=== PATIENT | female | born 1945 | race Caucasian/White ===

== ENCOUNTER 2016-07-30 06:41 | Day surgery (SDC) | payer MEDICARE, OTHER ==
[~2016-07-30] VITALS: Ht 160 cm; Wt 70.2 kg
[~2016-07-30 06:41] MED LIST: CELE200C PO; LOSA50TA6 PO; PARO10TA76 PO; ZOLP10TA5 PO
[2016-07-30 08:36] VITALS: Ht 160 cm; Wt 70.2 kg
[2016-07-30] MEDS ORDERED: MIDAZOLAM 1 MG/ML 2 ML INJ ONE ×4 (09:57→09:58)
[2016-07-30] MEDS ORDERED: FENTAnyl 50 MCG/ML VIAL ONE (09:57)
[2016-07-30 10:05] VITALS: BP 149/84; PULSE 67; RESP 20
[2016-07-30 10:55] VITALS: BP 123/69; RESP 20
--- NOTE | 2016-07-31 07:12 | GILP ---
DATE OF PROCEDURE: 07/30/2016 NAME OF PROCEDURE: 1. Esophagogastroduodenoscopy and biopsy. 2. Colonoscopy and polypectomy. SURGEON: Zeinab Church MD PREOPERATIVE DIAGNOSES: 1. Abdominal pain. 2. Screening colonoscopy. POSTOPERATIVE DIAGNOSES: 1. Hiatal hernia. 2. Gastroesophageal reflux disease. 3. Gastritis with erosions. 4. Gastric mucosal biopsies were taken for Helicobacter pylori test. 5. Colonoscopy all the way to the cecum. 6. Poor prep making the exam somewhat suboptimal. 7. Sigmoid colon polyp was removed using the snare and electrocautery. 8. Internal hemorrhoids. INDICATION FOR THE PROCEDURE: Ms. Alexa Workman is a 70-year-old female patient who had upper abdominal pain, not responding to therapy. The patient also needed screening colonoscopy. The procedures and possible complications are well explained to the patient, she understood and cons ented to the procedures. DESCRIPTION OF PROCEDURE: Under the influence of fentanyl and Versed, the gastroscope was carefully introduced into the esophagus and under direct vision, it was advanced to the stomach and through t he pylorus into the duodenal bulb and descending duodenum. FINDINGS: ESOPHAGUS: The patient had hiatal hernia and gastroesophageal reflux disease. STOMACH: She had gastritis with erosions. Gastric mucosal biopsies were taken for H. pylori test. DUODENUM: Normal. The colonoscope was carefully introduced in the rectum and under direct vision, it was advanced all the way to the cecum. FINDINGS: The patient had poor prep making the exam somewhat suboptimal. The patient was noted to have a sigmoid colon polyp and it was removed using the snare and electrocautery. The patient had i nternal hemorrhoids. She tolerated the procedures very well and there was no complication from the procedures. At the en d of the procedures, she was awake with stable vital signs and she was discharged home to the care o f her family. IMPRESSION: Please see postoperative diagnosis. PLAN: 1. Omeprazole 40 mg p.o. q.a.m. 2. Zantac 300 mg p.o. at bedtime. 3. Await histopathology reports. 4. Because of the poor prep and suboptimal nature of the examination, would recommend next screenin g colonoscopy in 3 years. Dictated By: ZEINAB DHALIWAL/JEROMY Conf#: [id number] DID#: [id number]
== END 2016-07-30 10:08 | disposition home or self-care (01) ==
LOC: GIL 06:41
PROVIDERS: ATTEND Internal Medicine Gastroenterology
DX: Z12.11 Encounter for screening for malignant neoplasm of colon (principal); D12.5 Benign neoplasm of sigmoid colon; K44.9 Diaphragmatic hernia without obstruction or gangrene; K29.60 Other gastritis without bleeding; K21.9 Gastro-esophageal reflux disease without esophagitis; K64.8 Other hemorrhoids; I10 Essential (primary) hypertension
CPT/HCPCS: 43239; 45380; J2250; J3010; 87081; 88305